=== PATIENT | female | born 1950 | race Two or more races ===

== ENCOUNTER 2023-10-30 21:35 | Emergency (ER) | payer BC, OTHER ==
[~2023-10-30] VITALS: Ht 162.6 cm; Wt 82.0 kg
[2023-10-30 21:39] VITALS: TEMP 98.8; O2SAT 95
[2023-10-30] MEDS ORDERED: MORPHINE SULFATE 10 MG/ML CPJ IM ONE (22:30)
[2023-10-30] MEDS ORDERED: ONDANSETRON 4MG ODT PO ONE (22:30)
[2023-10-30] MEDS ORDERED: ACETAMINOPHEN 325MG TABLET PO ONE (22:30)
[2023-10-30] MEDS ORDERED: HYDR-4001 MT (23:35)
[2023-10-31 03:26] VITALS: BP 110/70; PULSE 88; RESP 18
== END 2023-10-31 03:29 | disposition home or self-care (01) ==
LOC: ER 21:35
DX: M25.552 Pain in left hip (principal); M25.551 Pain in right hip; I11.0 Hypertensive heart disease with heart failure; I50.9 Heart failure, unspecified
CPT/HCPCS: 99283; 72170; 96372; Q0162; J2270